=== PATIENT | male | born 2000 | race Two or more races ===

== ENCOUNTER 2023-01-19 16:17 | Emergency (ER) | payer OTHER ==
[~2023-01-19] VITALS: Ht 165.1 cm; Wt 54.4 kg
== END 2023-01-19 20:40 | disposition home or self-care (01) ==
LOC: ER 16:17
DX: J06.9 Acute upper respiratory infection, unspecified (principal); F41.8 Other specified anxiety disorders; Z20.822 Contact with and (suspected) exposure to COVID-19